=== PATIENT | male | born 1975 | race Caucasian/White ===

== ENCOUNTER 2017-02-09 11:31 | Emergency (ER) | payer OTHER ==
[2017-02-09 11:38] VITALS: BP 141/102
[2017-02-09] MEDS ORDERED: IBUPROFEN 800 MG TABLET PO STA (12:01)
[2017-02-09] MEDS ORDERED: IBUPROFEN 800 MG TABLET PO ONE (12:20)
--- NOTE | 2017-02-09 12:58 | XRAY Preliminary Report ---
Exam: XR Thoracic Spine 2 View IMPRESSION: Mild scoliosis. No acute disease. [facility] SITE ID: [id number]
--- NOTE | 2017-02-09 13:00 | XRAY Report ---
EXAM: THORACIC SPINE RADIOGRAPHY EXAM DATE: 02/09/2017 12:46 PM. CLINICAL HISTORY: Persistent pain after trauma. COMPARISON: None. TECHNIQUE: 3 views. FINDINGS: Alignment: Mild scoliosis. No stasis. Bones: No fractures or bone lesions. Postoperative changes of the cervical spine. Disks: Normal. Disk heights are maintained. Soft Tissues: Normal. The visualized lungs and cardiomediastinal silhouette are normal. IMPRESSION: Mild scoliosis. No acute disease. [facility] Referring Provider Line: [phone] SITE ID: [id number]
--- NOTE | 2017-02-09 13:10 | ED Physician Documentation ---
PD HPI BACK PAIN - Stated complaint Stated Complaint: UPPER LT SHOULDER PAIN - Chief complaint Chief Complaint: Back Pain - History obtained from History obtained from: Patient - History of Present Illness Timing - onset: How many weeks ago (3) Timing - details: Still present Location: Upper, Left Quality: Similar to prior episodes Worsened by: Other (Worse with supine position.) Similar symptoms before: No diagnosis - Additional information Additional information: The patient is a 41-year-old male who presents with thoracic back pain of 3 weeks' duration. The pain is worse when lying down and better when standing or sitting. He denies any traumatic injury. He reports occasional "pins and needles" in his left upper extremity. He denies chest pain, cough, or shortness of breath. Past medical history is significant for C4-5 fusion 5 years ago. Review of Systems Constitutional: denies: Fever Nose: denies: Congestion Throat: denies: Sore throat Cardiac: denies: Chest pain / pressure Respiratory: denies: Dyspnea, Cough GI: denies: Abdominal Pain, Nausea, Vomiting : denies: Dysuria Skin: denies: Rash Musculoskeletal: reports: Back pain. denies: Neck pain, Extremity pain Neurologic: reports: Numbness (Intermittent pins and needles left upper extremity.). denies: Focal weakness, Headache PD PAST MEDICAL HISTORY - Past Medical History Past Medical History: Yes Cardiovascular: High cholesterol Endocrine/Autoimmune: None - Past Surgical History Past Surgical History: Yes General: Appendectomy Ortho: Knee replacement, Spine surgery (C4-5 fusion.) - Present Medications Home Medications: Ambulatory Orders Medication Instructions Recorded Confirmed Acetaminophen [Tylenol] 2 tab PO .FREQ 02/09/17 02/09/17 Fluticasone [Flonase] 1 spray PIYUSH DAILY 02/09/17 02/09/17 HYDROcod/ACETAM 5/325 [[place] 5/325] 1 - 2 ea PO Q6H PRN #20 tablet 02/09/17 Simvastatin 1 tab PO DAILY 02/09/17 02/09/17 - Allergies Allergies/Adverse Reactions: Allergies Allergy/AdvReac Type Severity Reaction Status Date / Time aspirin Allergy Hives Verified 02/09/17 11:38 - Social History Does the pt smoke?: No Smoking Status: Never smoker Does the pt drink ETOH?: Yes Does the pt have substance abuse?: No - Immunizations Immunizations are current?: Yes PD ED PE NORMAL - Vitals Vital signs reviewed: Yes (Borderline hypertension initially.) - General General: Alert and oriented X 3, Well developed/nourished, Other (Sitting on the gurney performing range of motion exercises of his neck and shoulders.) - HEENT HEENT: Atraumatic, EOMI, Pharynx benign - Neck Neck: No bony TTP, No adenopathy, No JVD - Cardiac Cardiac: RRR, No murmur - Respiratory Respiratory: No respiratory distress, Clear bilaterally - Abdomen Abdomen: Soft, Non tender - Back Back: No CVA TTP, Other (Tenderness to palpation of the left para thoracic musculature adjacent to the left scapula, in the region of the rhomboideus musculature.) - Derm Derm: No rash - Extremities Extremities: No edema, No calf tenderness / cord, Other (Full range of motion of the left shoulder, with discomfort in the rhomboideus region with elevation.) - Neuro Neuro: Alert and oriented X 3, No motor deficit, No sensory deficit Results - Vitals Vitals: Oxygen O2 Source Room air - Rads (name of study) Thoracic spine xrays Radiology: Prelim report reviewed, EMP read contemporaneously, See rad report ( Mild scoliosis. No acute disease.) PD MEDICAL DECISION MAKING - ED course Complexity details: reviewed results, re-evaluated patient, considered differential, d/w patient ED course: The patient's presentation with upper thoracic back pain is most consistent with strain. There is no traumatic injury, and no x-ray evidence of bony abnormality except for mild scoliosis. Treatment in the emergency department included administration of ibuprofen 800 mg orally. He is being discharged with a prescription for Vicodin, 20 tablets. I discussed with him the imaging results , symptomatic treatment and outpatient follow-up, as well as potentially worrisome signs or symptoms that should prompt reevaluation in the emergency department. Departure - Departure Disposition: 01 Home, Self Care Clinical Impression: Thoracic back pain Qualifiers: Chronicity: acute Back pain laterality: left Qualified Code(s): M54.6 - Pain in thoracic spine Condition: Stable Instructions: ED Neck Back Pain General Follow-Up: [facility] [Provider Group] Prescriptions: HYDROcod/ACETAM 5/325 [[place] 5/325] 1 - 2 ea PO Q6H PRN #20 tablet PRN Reason: Pain Comments: Apply icepack to your back intermittently for the next 3 or 4 days. You can use ibuprofen, up to 800 mg 3 times daily for its anti-inflammatory effect. You can also use Vicodin as prescribed if needed for pain. Let pain be your guide to activity level. Follow up with your primary physician within 2 weeks. Call to schedule an appointment. Return to the emergency department if you develop increasing pain, shortness of breath, or otherwise worsening symptoms. Discharge Date/Time: 02/09/17 13:19
== END 2017-02-09 13:19 | disposition home or self-care (01) ==
LOC: ED 11:31
DX: M54.6 Pain in thoracic spine (principal); R20.2 Paresthesia of skin; M41.84 Other forms of scoliosis, thoracic region; Z98.1 Arthrodesis status
CPT/HCPCS: 72070; 99283; A9270

== ENCOUNTER 2023-10-25 10:15 | Emergency (ER) | payer OTHER ==
[2023-10-25 10:34] VITALS: BP 119/104
--- NOTE | 2023-10-25 11:24 | ED Physician Documentation ---
History of Present Illness - Stated complaint Stated Complaint: HEAD BUMP PX, - Chief complaint Chief Complaint: Wound - History obtained from History obtained from: Patient - Additonal information Additional information: Patient is a 48-year-old male presenting for evaluation of a lesion to his scalp that has been present for several days. Patient states he sleeps on a pillow that has an opening for the center of his head and in the location of where the swelling is. He states that a few days ago he noticed some discomfort to the area and then developed some swelling. At this morning he realized there is some matted drainage on his hair and decided to have it evaluated. He does have a history of having abscesses elsewhere including under the armpits. Denies diabetes. Denies feeling like he was bit by anything. Denies fever. Review of Systems Constitutional: denies: Fever Skin: reports: Lesions Neurologic: denies: Headache PD PAST MEDICAL HISTORY - Past Medical History Past Medical History: Yes Cardiovascular: High cholesterol Endocrine/Autoimmune: None - Past Surgical History Past Surgical History: Yes General: Appendectomy Ortho: Knee replacement, Spine surgery - Present Medications Home Medications: Ambulatory Orders Medication Instructions Recorded Confirmed Acetaminophen [Tylenol] 2 tab PO .FREQ 02/09/17 02/09/17 Fluticasone [Flonase] 1 spray PIYUSH DAILY 02/09/17 02/09/17 HYDROcod/ACETAM 5/325 [[place] 5/325] 1 - 2 ea PO Q6H PRN #20 tablet 02/09/17 Simvastatin 1 tab PO DAILY 02/09/17 02/09/17 Sulfamethox/Trimeth 800/160 1 each PO BID #14 tablet 10/25/23 [Bactrim Ds 800/160] cephALEXin [Keflex] 500 mg PO Q6H #28 cap 10/25/23 - Allergies Allergies/Adverse Reactions: Allergies Allergy/AdvReac Type Severity Reaction Status Date / Time aspirin Allergy Hives Verified 10/25/23 10:25 - Social History Does the pt smoke?: No Smoking Status: Never smoker Does the pt drink ETOH?: Yes Does the pt have substance abuse?: No - Immunizations Immunizations are current?: Yes - POLST Patient has POLST: No PD ED PE NORMAL - General General: Alert and oriented X 3, No acute distress, Well developed/nourished - HEENT HEENT: PERRL, EOMI, Moist mucous membranes, Pharynx benign, Other (1 inch area of swelling/erythema to posterior scalp, large opening to wound with purulent drainage) - Neck Neck: Supple, no meningeal sign, No bony TTP - Cardiac Cardiac: RRR - Respiratory Respiratory: No respiratory distress - Derm Derm: Warm and dry - Neuro Neuro: Normal speech Results - Vitals Vitals: Vital Signs - 24 hr 10/25/23 10:23 Temperature 36.4 C L Heart Rate 81 Respiratory 20 Rate Blood Pressure 119/104 H O2 Saturation 96 Oxygen O2 Source Room air - Labs Labs: Microbiology 10/25/23 11:07 Wound Culture - Preliminary Head PD Medical Decision Making - ED course ED course: Patient presenting for evaluation of swelling and Drainage to posterior scalp. On exam has what appears to be an abscess that has opened and is draining. This time I do not see indication for further I&D as there is a large opening and most of the contents of the wound have already drained. I have cultured the area. I will start on antibiotics. Patient is otherwise well-appearing. He is counseled regarding treatment plan and understands concerning symptoms to return for. Departure - Departure Disposition: 01 Home, Self Care Clinical Impression: Scalp abscess Condition: Stable Instructions: ED Abscess IandD Prescriptions: Sulfamethox/Trimeth 800/160 [Bactrim Ds 800/160] 1 each PO BID #14 tablet cephALEXin [Keflex] 500 mg PO Q6H #28 cap Comments: You were evaluated for a lesion to your scalp. It appears to be an abscess which has opened up and is draining. I have cleaned the wound off and at this time does not need further opening to allow more drainage. I will start you on 2 antibiotics. These prescriptions were sent to [facility] in [place]. I have also obtained a wound culture to make sure that you are on the appropriate antibiotics. I would recommend close follow-up with your primary care provider to ensure that this lesion heals. If you develop any worsening symptoms such as increased pain, increased swelling or any other concerns please return to the ER. Forms: PCP List Discharge Date/Time: 10/25/23 12:01
[2023-10-25 11:33] VITALS: O2SAT 96
== END 2023-10-25 12:01 | disposition home or self-care (01) ==
LOC: ED 10:15
DX: L02.811 Cutaneous abscess of head [any part, except face] (principal); E78.00 Pure hypercholesterolemia, unspecified; Z79.899 Other long term (current) drug therapy
CPT/HCPCS: 87070; 87181; 87205; 99283

== ENCOUNTER 2024-03-15 10:40 | Emergency (ER) | payer OTHER ==
--- NOTE | 2024-03-15 12:00 | ED Physician Documentation ---
PD HPI SKIN - Stated complaint Stated Complaint: BACK OF HEAD WOUND - Chief complaint Chief Complaint: Wound - Additional information Additional information: 48-year-old male with history of hypertension recent abscess that grew MRSA presents to the emergency department for new left posterior neck abscess. Patient reports that he noticed about a week ago ingrown hair he said he could even see the actual hair itself to the back of his neck he left and as time has been going on it has been increasing in size redness and swelling. Is quite tender to the touch. He denies any fevers or chills. Last cultures did grow MRSA resistant to ciprofloxacin, erythromycin, levofloxacin, penicillin G PD PAST MEDICAL HISTORY - Past Medical History Past Medical History: No Cardiovascular: High cholesterol Endocrine/Autoimmune: None - Past Surgical History Past Surgical History: Yes General: Appendectomy Ortho: Knee replacement, Spine surgery - Present Medications Home Medications: Ambulatory Orders Medication Instructions Recorded Confirmed Atorvastatin [Lipitor] 20 mg PO QPM 03/15/24 03/15/24 Doxycycline [Vibramycin] 100 mg PO BID 7 Days #13 tablet 03/15/24 cephALEXin [Keflex] 500 mg PO Q6H 5 Days #20 cap 03/15/24 - Allergies Allergies/Adverse Reactions: Allergies Allergy/AdvReac Type Severity Reaction Status Date / Time aspirin Allergy Hives Verified 03/15/24 10:51 - Social History Does the pt smoke?: No Smoking Status: Never smoker Does the pt drink ETOH?: Yes Does the pt have substance abuse?: No - Immunizations Immunizations are current?: Yes - POLST Patient has POLST: No PD ED PE NORMAL - Vitals Vital signs reviewed: Yes - General General: Alert and oriented X 3, No acute distress, Well developed/nourished - HEENT HEENT: Atraumatic, PERRL - Derm Derm: Other ( any day over erythema with induration and obvious purulent drainage collection to the left posterior lateral neck great) - Psych Psych: Normal mood Results - Vitals Vitals: Vital Signs - 24 hr 03/15/24 03/15/24 10:49 14:22 Temperature 36.5 C Heart Rate 91 87 Respiratory 16 16 Rate Blood Pressure 124/77 124/67 O2 Saturation 99 98 Oxygen O2 Source Room air - Labs Labs: Microbiology 03/15/24 14:06 Wound Culture - Preliminary Back - Upper Procedures - Abscess I&D (location) Neck left Posterior Preparation: Betadine, Alcohol, Lidocaine 2%, With epi Incision: Incised with scalpel, Purulent drainage, Loculations broken, Irrigated, Culture obtained Other: Pt tolerated well, Dressing applied, Antibiotic prescribed PD Medical Decision Making - ED course ED course: Large fluid collection with induration and fluctuance to the patient's left posterior lateral neck at the base of the neck. Incision and drainage was complete see procedure note for more details wound cultures were collected patient was started on doxycycline and Keflex here in the emergency department. Packing was placed with iodoform and patient was told to remove packing and dressing either late tomorrow night or early Monday morning. He was given ER return precautions told to follow-up with his primary care provider and he was able to make an appointment online right away for this. Patient given strict ER return precautions he remains afebrile does not have any systemic symptoms of infection. He was told that he will be called in a couple days with culture results. Departure - Departure Disposition: 01 Home, Self Care Clinical Impression: Neck abscess Instructions: ED Abscess IandD Prescriptions: cephALEXin [Keflex] 500 mg PO Q6H 5 Days #20 cap Doxycycline [Vibramycin] 100 mg PO BID 7 Days #13 tablet Comments: Thank you for trusting us with your care. We have sent a wound swab to the lab for cultures we will call you in the next couple days if you need to change antibiotics in the meantime continue to take your doxycycline and Keflex. I sent this prescription to your preferred pharmacy on file. You can take Tylenol or ibuprofen for any pain discomfort remove the packing either late tomorrow night or first thing Monday after showering with soap and water and doing some massaging around the area. Please help with your primary care provider for reevaluation and come back to the ER if symptoms get any worse or if restarting develop any fevers or chills. Forms: PCP List Discharge Date/Time: 03/15/24 14:23
[2024-03-15] MEDS ORDERED: LIDOCAINE 1%-EPI 1:100000 10 ML MDV TD STA (12:15)
[2024-03-15] MEDS: DOXYCYCLINE 100 MG TABLET PO STA (12:29)
[2024-03-15] MEDS: cephALEXin 250 MG CAPSULE PO STA (12:29)
[2024-03-15] MEDS: LIDOCAINE 2%-EPI 1:100000 20 ML MDV SUBQ STA (12:30)
[2024-03-15] MEDS: ACETAMINOPHEN 325 MG TABLET PO STA (14:04)
[2024-03-15 14:26] VITALS: BP 124/67; O2SAT 98
== END 2024-03-15 14:23 | disposition home or self-care (01) ==
LOC: ED 10:40
DX: L02.11 Cutaneous abscess of neck (principal); E78.00 Pure hypercholesterolemia, unspecified; Z79.899 Other long term (current) drug therapy
CPT/HCPCS: 10060; 87070; 87181; 87205; 99283; A9270